=== PATIENT | female | born 1990 | race African-American/Black ===

== ENCOUNTER 2016-10-12 16:01 | Emergency (ER) | payer MEDICAID ==
--- NOTE | 2016-10-12 17:27 | ED ---
- HPI Summary HPI Summary: 26 F presents for sonogram for potential scheduled in [place]. LMP was Jul 18, 2016. She is currently 16 weeks . [facility] . [facility] but [facility] not [facility] so need another one done. She denies any abdominal pain, vaginal bleeding, chest pain, SOB, or n/v. - History of Current Complaint Chief Complaint: EDOBProblems Stated Complaint: NEEDS SONOGRAM Time Seen by Provider: 10/12/16 17:03 Pain Intensity: 0 - Assessment Hx Now: No SAB: 0 IEA: 2 - Additional Pertinent History Maternal Blood Type and Rh: O Negative - Allergies/Home Medications Allergies/Adverse Reactions: Allergies Allergy/AdvReac Type Severity Reaction Status Date / Time No Known Allergies Allergy Verified 10/12/16 16:08 PMH/Surg Hx/FS Hx/Imm Hx Endocrine/Hematology History: Denies: Hx Diabetes, Hx Thyroid Disease Cardiovascular History: Denies: Hx Hypertension Respiratory History: Denies: Hx Asthma, Hx Chronic Obstructive Pulmonary Disease (COPD) GI History: Denies: Hx Ulcer Psychiatric History: Denies: Hx Anxiety, Other Psychiatric Issues/Disorders Infectious Disease History: No Infectious Disease History: Denies: Hx Clostridium Difficile, Hx Hepatitis, Hx Human Immunodeficiency Virus (HIV), Hx Shingles, Hx Tuberculosis, Traveled Outside the in Last 30 Days - Family History Known Family History: Positive: Cardiac Disease - Social History Alcohol Use: None Substance Use Type: Reports: None Smoking Status (MU): Light Every Day Tobacco Smoker Amount Used/How Often: <1/2 ppd Have You Smoked in the Last Year: No Review of Systems Negative: Fever Negative: Chest Pain Negative: Shortness Of Breath Negative: Abdominal Pain All Other Systems Reviewed And Are Negative: Yes Physical Exam - Physical Exam Triage Information Reviewed: Yes Vital Signs Reviewed: Yes Appearance: Positive: Well-Appearing Skin: Positive: Warm, Dry Head/Face: Positive: Normal Head/Face Inspection Eyes: Positive: Normal, Conjunctiva Clear ENT: Positive: Normal ENT inspection, Pharynx normal, TMs normal Respiratory/Lung Sounds: Positive: Clear to Auscultation, Breath Sounds Present Cardiovascular: Positive: Normal, RRR Diagnostics - Vital Signs Vital Signs Temp Pulse Resp BP Pulse Ox 10/12/16 16:50 98.1 F 93 16 122/70 98 10/12/16 16:03 97.7 F 97 16 148/76 98 - Laboratory Lab Statement: Any lab studies that have been ordered have been reviewed, and results considered in the medical decision making process. Course/Dx - Course Course Of Treatment: 26 F presents for u/s for scheduled . No compliant at this time. was told to come here for authorization form for u[facility]s. [facility] at this time. called u/s and they can not do complete u/s for out of ER which is what is needed. explained this to patient that will need [facility] to get [facility] to [facility] to have u/s done as outpatient, patient understands and agrees with plan - Differential Diagnosis/HQI/PQRI: Threatened , Intrauterine - Diagnoses Provider Diagnoses: Discharge - Discharge Plan Condition: Good Disposition: HOME Patient Education Materials: at 15 to 18 Weeks (ED) Referrals: No Primary Care Phys,NOPCP [Primary Care Provider] - Additional Instructions: Call [facility] Return to ED if develop any new or worsening symptoms
[2016-10-12 17:34] VITALS: BP 116/60
== END 2016-10-12 17:33 | disposition home or self-care (01) ==
LOC: ED 16:01
DX: Z34.92 Encounter for supervision of normal pregnancy, unspecified, second trimester (principal); Z3A.16 16 weeks gestation of pregnancy
CPT/HCPCS: 99281

== ENCOUNTER 2017-12-26 13:06 | Emergency (ER) | payer SELFPAY ==
[2017-12-26 16:28] VITALS: BP 111/80
--- NOTE | 2018-01-11 06:30 | ED ---
Throat Pain/Nasal Congestion - HPI Summary HPI Summary: Patient presents with right ear pain, swelling and pain in throat x 1 day. Pain worse with swallowing. She has not tried anything yet for pain. Denies fevers , chills, nausea, vomiting, diarrhea, chest pain, abdominal pain, shortness of breath, rash, cough. She admits her child has been sick recently - diagnosed with a sinus infection and provided with antibiotic prescription however mom has not had this filled yet as she couldn't afford it. Mom denies personal history of strep throat, [place]. Believes her immunizations are up-to-date otherwise. - History of Current Complaint Chief Complaint: EDThroatPain Time Seen by Provider: 12/26/17 14:19 Hx Obtained From: Patient - Allergies/Home Medications Allergies/Adverse Reactions: Allergies Allergy/AdvReac Type Severity Reaction Status Date / Time No Known Allergies Allergy Verified 12/26/17 13:13 PMH/Surg Hx/FS Hx/Imm Hx Previously Healthy: Yes Endocrine/Hematology History: Denies: Hx Diabetes, Hx Thyroid Disease Cardiovascular History: Denies: Hx Hypertension Respiratory History: Denies: Hx Asthma, Hx Chronic Obstructive Pulmonary Disease (COPD) GI History: Denies: Hx Ulcer Psychiatric History: Denies: Hx Anxiety, Other Psychiatric Issues/Disorders Infectious Disease History: No Infectious Disease History: Denies: Hx Clostridium Difficile, Hx Hepatitis, Hx Human Immunodeficiency Virus (HIV), Hx Shingles, Hx Tuberculosis, Traveled Outside the in Last 30 Days - Family History Known Family History: Positive: Cardiac Disease - Social History Lives: With Family Alcohol Use: None Hx Substance Use: No Substance Use Type: Reports: None Hx Tobacco Use: Yes Smoking Status (MU): Current Every Day Smoker Amount Used/How Often: <1/2 ppd Have You Smoked in the Last Year: No Review of Systems Constitutional: Negative Negative: Fever, Chills, Fatigue Eyes: Negative Positive: Sore Throat, Ear Ache. Negative: Nasal Discharge Cardiovascular: Negative Respiratory: Negative Negative: Shortness Of Breath Gastrointestinal: Negative Positive: no symptoms reported Musculoskeletal: Negative Skin: Negative Neurological: Negative Psychological: Normal All Other Systems Reviewed And Are Negative: Yes Physical Exam Triage Information Reviewed: Yes Vital Signs On Initial Exam: Initial Vitals Temp Pulse Resp BP Pulse Ox 98.2 F 95 16 143/72 98 12/26/17 13:11 12/26/17 13:11 04/26/18 13:11 12/26/17 13:11 12/26/17 13:11 Vital Signs Reviewed: Yes Appearance: Positive: Well-Appearing, No Pain Distress, Well-Nourished Skin: Positive: Warm, Skin Color Reflects Adequate Perfusion, Dry - no rash Head/Face: Positive: Normal Head/Face Inspection Eyes: Positive: Normal, EOMI, Conjunctiva Clear ENT: Positive: Hearing grossly normal, Pharynx normal, TMs normal, Tonsillar swelling, Tonsillar exudate, Uvula midline. Negative: Nasal congestion, Nasal drainage, Trismus, Muffled voice, Sinus tenderness Neck: Positive: Supple, Tenderness @ - submandibular, Enlarged Nodes @ - as above Respiratory/Lung Sounds: Positive: Clear to Auscultation, Breath Sounds Present. Negative: Rales, Rhonchi, Stridor, Tracheal Deviation, Wheezes Cardiovascular: Positive: Normal, RRR, S1, S2. Negative: Murmur, Rub Abdomen Description: Positive: Nontender, No Organomegaly, Soft Bowel Sounds: Positive: Present Musculoskeletal: Positive: Normal, Strength/ROM Intact Neurological: Positive: Normal, Sensory/Motor Intact, Alert, Oriented to Person Place, Time, CN Intact II-III Psychiatric: Positive: Normal Diagnostics - Vital Signs Vital Signs Temp Pulse Resp BP Pulse Ox 12/26/17 16:27 97.5 F 98 16 111/80 100 12/26/17 13:11 98.2 F 95 16 143/72 98 - Laboratory Lab Results: Lab Results 12/26/17 Range/Units 14:40 Group A Strep Rapid Positive A (Negative) Lab Statement: Any lab studies that have been ordered have been reviewed, and results considered in the medical decision making process. EENT Course/Dx - Course Course Of Treatment: Patient diagnosed with strep throat. Believe her son has the same. Strongly encouraged her to start antibiotics today as well as get her son's antibiotics filled. Discussed free prescription program through various pharmacies in town. She requests this medication as [facility] as [facility] will pick this up today. Encouraged her to call back if she has any difficulty obtaining this prescription and explained it is important for not only her to take an complete this but also her son in an effort to a prevent worsening infection in either of their bodies as well as be prevent spread to other persons. Patient voices understanding and agrees with plan. Reviewed danger signs and symptoms of when to return to the emergency department. Patient also voices understanding and agrees with plan. - Diagnoses Provider Diagnoses: Strep pharyngitis Discharge - Sign-Out/Discharge Documenting (check all that apply): Discharge/Admit/Transfer - Discharge Plan Condition: Stable Disposition: HOME Prescriptions: Amoxicillin PO (*) [Amoxicillin 500 MG CAP*] 500 mg PO Q12H #20 cap Patient Education Materials: Strep Throat (ED) Referrals: [facility] [Outside] Additional Instructions: Complete antibiotics as directed - they have been sent to your pharmacy. If you do not complete this, your infection could worsen and spread to other organs such as your heart, kidneys, etc. To aid in your comfort, try the following: Salt water throat gargles 2 x day Drink you body weight in ounces of water every day Sleep 8+ hours per night Avoid Dairy and sugar Hot herbal/decaf tea with lemon & honey Chicken broth (preferably organic, free range chicken) Keep home temperature at 68F or less to reduce dryness Use throat lozenges Ibuprofen with food as needed for pain Avoid smoke, candles, perfumes, colognes, scented soaps/detergents , air fresheners and cleaning chemicals as these can cause airway irritation and trigger coughing Start Vitamin D3 5000iu and Vitamin C 1000mg every day x winter months Start probiotics in between antibiotics (ie. Yogurt and/or capsules of L. acidophilus, L. bifidus, L. casei, etc) *If you develop worsening of symptoms or difficulty swallowing/breathing, return to ED. Otherwise, follow-up with your PCP. - Billing Disposition and Condition Condition: STABLE Disposition: HOME
== END 2017-12-26 16:27 | disposition home or self-care (01) ==
LOC: ED 13:06
DX: J02.0 Streptococcal pharyngitis (principal); F17.210 Nicotine dependence, cigarettes, uncomplicated
CPT/HCPCS: 87651; 99282

== ENCOUNTER 2019-01-18 14:25 | Emergency (ER) | payer OTHER ==
[2019-01-18] MEDS ORDERED: Ketorolac INJ* 60 MG/2 ML VIAL IM ONE (15:33)
[2019-01-18] MEDS ORDERED: Ibuprofen TAB* 600 MG PO ONE (15:38)
[2019-01-18 16:26] LABS: C Reactive Protein 5.8 mg/L (<8.01)
[2019-01-18 17:00] VITALS: BP 106/91
--- NOTE | 2019-01-18 17:09 | ED ---
HPI Cardiac - HPI Summary HPI Summary: Patient is a 28-year-old otherwise healthy female presenting to the ED with midsternal to left-sided chest wall pain. Symptoms began yesterday after eating to double cheeseburgers and namibian fries, stating she felt this was epigastric pain. However upon awakening this morning, the pain continued to this area. She is endorsing some pain up to the left shoulder with some numbness and tingling down the arm earlier, this is since resolved. Symptoms are worse with palpation, better with nothing. Symptoms are worse with deep breaths and movement (turning side to side). Endorses smoking hx, no recent travel. No history of blood clots. No history of COPD, asthma or PNA. Denies any shortness of breath. Denies any throat or neck pain. She states she is otherwise feeling well. Denies any fevers, sweats, chills. - History of Current Complaint Chief Complaint: EDShortnessOfBreath Stated Complaint: SHORT OF BREATH, CHEST PAIN Time Seen by Provider: 01/18/19 15:25 Hx Obtained From: Patient Hx Last Menstrual Period: yesterday Onset/Duration: Started Hours Ago Timing: Constant Initial Severity: Moderate Current Severity: Moderate Pain Intensity: 4 Pain Scale Used: 0-10 Numeric Chest Pain Location: Mid Sternal Chest Pain Radiates: Yes Chest Pain Radiates To:: Shoulder Character: Tightness Aggravating Factor(s): Position, Movement, Deep Breaths Alleviating Factor(s): Rest, Position Associated Signs and Symptoms: Negative: Chest Pain, Vision Changes, Anxiety, Recent Stress, Palpitations, Edema, URI - Risk Factors Pulmonary Embolism Risk Factors: Negative Cardiac Risk Factors: Negative Atrial Fibrillation Risk Factors: Negative TAD Risk Factors: Negative - Allergy/Home Medications Allergies/Adverse Reactions: Allergies Allergy/AdvReac Type Severity Reaction Status Date / Time No Known Allergies Allergy Verified 12/26/17 13:13 PMH/Surg Hx/FS Hx/Imm Hx Previously Healthy: Yes Endocrine/Hematology History: Denies: Hx Diabetes, Hx Thyroid Disease Cardiovascular History: Denies: Hx Hypertension Respiratory History: Denies: Hx Asthma, Hx Chronic Obstructive Pulmonary Disease (COPD) GI History: Denies: Hx Ulcer Psychiatric History: Denies: Hx Anxiety, Other Psychiatric Issues/Disorders - Immunization History Hx Pertussis Vaccination: No Immunizations Up to Date: Yes Infectious Disease History: No Infectious Disease History: Denies: Hx Clostridium Difficile, Hx Hepatitis, Hx Human Immunodeficiency Virus (HIV), Hx Shingles, Hx Tuberculosis, Traveled Outside the [place] in Last 30 Days - Family History Known Family History: Positive: Cardiac Disease - Social History Occupation: Employed Full-time Lives: With Family Alcohol Use: None Hx Substance Use: No Substance Use Type: Reports: None Hx Tobacco Use: Yes Smoking Status (MU): Current Every Day Smoker Amount Used/How Often: <1/2 ppd Have You Smoked in the Last Year: No Review of Systems Constitutional: Negative Negative: Fever, Chills, Fatigue, Skin Diaphoresis Positive: Chest Pain - midsternal chest wall pain. Negative: Palpitations Negative: Shortness Of Breath, Cough Negative: Arthralgia, Myalgia, Decreased ROM, Edema Negative: Rash, Bruising Neurological: Negative All Other Systems Reviewed And Are Negative: Yes Physical Exam Triage Information Reviewed: Yes Vital Signs On Initial Exam: Initial Vitals Temp Pulse Resp BP Pulse Ox 98.6 F 103 18 122/86 98 01/18/19 14:33 01/18/19 14:33 01/18/19 14:33 01/18/19 14:33 01/18/19 14:33 Vital Signs Reviewed: Yes Appearance: Positive: Well-Appearing, Well-Nourished Skin: Positive: Warm, Skin Color Reflects Adequate Perfusion Head/Face: Positive: Normal Head/Face Inspection Eyes: Positive: EOMI, Conjunctiva Clear Neck: Positive: Supple, No Lymphadenopathy Respiratory/Lung Sounds: Positive: Breath Sounds Present Cardiovascular: Positive: RRR, Pulses are Symmetrical in both Upper and Lower Extremities Musculoskeletal: Positive: Pain @ - left chest wall and sternal notch on palpation; ROM throughout upper extremities with discomfort Neurological: Positive: Sensory/Motor Intact, Alert, Oriented to Person Place, Time Psychiatric: Positive: Affect/Mood Appropriate, Anxious Diagnostics - Vital Signs Vital Signs Temp Pulse Resp BP Pulse Ox 01/18/19 16:59 97.2 F 91 23 106/91 98 01/18/19 16:17 91 99 01/18/19 15:31 97 124/88 99 01/18/19 15:30 94 99 01/18/19 14:33 98.6 F 103 18 122/86 98 - Laboratory Lab Results: Lab Results 01/18/19 01/18/19 01/18/19 Range/Units 16:01 16:01 16:01 WBC 12.0 H (3.5-10.8) 10^3/uL D-Dimer, Quantitative < 200 (Less Than 230) ng/mL Troponin I 0.00 (<0.04) ng/mL C-Reactive Protein 5.80 (<8.01) mg/L Result Diagrams: 01/18/19 16:01 Lab Statement: Any lab studies that have been ordered have been reviewed, and results considered in the medical decision making process. Disposition - Course Course Of Treatment: During his course of treatment, the patient's evaluated for midsternal to left-sided chest wall pain. On physical examination, there is exquisite tenderness to palpation of the sternal region radiating to the left chest wall. There is no neck pain tenderness on palpation. No neck stiffness. No photophobia. Denies shortness of breath. White blood cell count shows 12. Negative CRP. Troponin 0.00. D-dimer is negative. Patient is given Toradol in the ED. She'll be dx with costochondritis d/t pain on palpation. There are no other findings suggestive of cardiac etiology. - Differential Dx - Cardiopulmonary Differential Diagnoses - Cardiopulmonary: Other - Chest wall pain, muscle pain, chest tightness - Diagnoses Provider Diagnoses: Costochondral pain Discharge - Sign-Out/Discharge Documenting (check all that apply): Patient Departure Patient Received Moderate/Deep Sedation with Procedure: No - Discharge Plan Condition: Stable Disposition: HOME Prescriptions: Ketorolac TAB * [Toradol TAB *] 10 mg PO Q6H #16 tab predniSONE TAB* [Deltasone TAB*] 50 mg PO DAILY #4 tab Patient Education Materials: Costochondritis (ED) Forms: *Work Release Referrals: No Primary Care Phys,NOPCP [Primary Care Provider] - Additional Instructions: Toradol four times daily x 4 days Prednisone once daily in the morning x 4 days moist heat over the area as much as possible Gentle stretches - Billing Disposition and Condition Condition: STABLE Disposition: Home
== END 2019-01-18 16:59 | disposition home or self-care (01) ==
LOC: ED 14:25
DX: R07.1 Chest pain on breathing (principal); F17.210 Nicotine dependence, cigarettes, uncomplicated
CPT/HCPCS: 36415; 71046; 84484; 85048; 85379; 86140; 93005; 96372; 99283; J1885

== ENCOUNTER 2019-10-06 15:00 | Emergency (ER) | payer OTHER ==
[2019-10-06] MEDS ORDERED: Benzonatate CAP* 100 MG PO ONE (18:30)
--- NOTE | 2019-10-06 18:33 | ED ---
Influenza-Like Illness - HPI Summary HPI Summary: Patient is a 29 y/o F presenting to [facility] with complaints of chest congestion, cough, sore throat, fever, rhinorrhea. Sx onset yesterday. She states that she had an episode of hot flashes earlier today as well. N/V/D denied. Patient denies taking medications for her Sx. She has not had flu shot this season. Patient notes sick contact with friend's son. PMHx denied. PSHx of caesarean section noted. She is a current smoker, notes rare alcohol usage, and denies substance usage. NKDA reported. Home medications and allergies are reviewed. - History of Current Complaint Chief Complaint: EDFluSymptoms Time Seen by Provider: 10/06/19 18:02 Hx Obtained From: Patient Onset/Duration: Lasting Days, Still Present Severity: Mild Associated Signs & Symptoms: Fever, Cough, Sore Throat, Nasal Congestion - Allergy/Home Medications Allergies/Adverse Reactions: Allergies Allergy/AdvReac Type Severity Reaction Status Date / Time No Known Allergies Allergy Verified 12/26/17 13:13 PMH/Surg Hx/FS Hx/Imm Hx Endocrine/Hematology History: Denies: Hx Diabetes, Hx Thyroid Disease Cardiovascular History: Denies: Hx Hypertension Respiratory History: Denies: Hx Asthma, Hx Chronic Obstructive Pulmonary Disease (COPD) GI History: Denies: Hx Ulcer Psychiatric History: Denies: Hx Anxiety, Other Psychiatric Issues/Disorders Infectious Disease History: No Infectious Disease History: Denies: Hx Clostridium Difficile, Hx Hepatitis, Hx Human Immunodeficiency Virus (HIV), Hx Shingles, Hx Tuberculosis, Traveled Outside the [place] in Last 30 Days - Family History Known Family History: Positive: Cardiac Disease - Social History Alcohol Use: Rare Hx Substance Use: No Substance Use Type: Reports: None Hx Tobacco Use: Yes Smoking Status (MU): Current Every Day Smoker Amount Used/How Often: <1/2 ppd Have You Smoked in the Last Year: No Review of Systems Constitutional: Other - positive - hot flashes Positive: Fever - reported Positive: Sore Throat, Nasal Discharge Respiratory: Other - positive - chest congestion Positive: Cough Negative: Vomiting, Diarrhea, Nausea All Other Systems Reviewed And Are Negative: Yes Physical Exam - Summary Physical Exam Summary: Constitutional: Well-developed, Well-nourished, Alert. (-) Distressed Skin: Warm, Dry HENT: Normocephalic; Atraumatic Eyes: Conjunctiva normal Neck: Musculoskeletal ROM normal neck. (-) JVD, (-) Stridor, (-) Tracheal deviation Cardio: Rhythm regular, rate normal, Heart sounds normal; Intact distal pulses; Radial pulses are 2+ and symmetric. (-) Murmur Pulmonary/Chest wall: Effort normal. (-) Respiratory distress, (-) Wheezes, (-) Rales Abd: Soft, (-) tenderness, (-) Distension, (-) Guarding, (-) Rebound Musculoskeletal: (-) Edema Lymph: (-) Cervical adenopathy Neuro: Alert, Oriented x3 Psych: Mood and affect Normal Triage Information Reviewed: Yes Vital Signs On Initial Exam: Initial Vitals Temp Pulse Resp BP Pulse Ox 97.9 F 98 18 129/110 99 10/06/19 15:27 10/06/19 15:27 10/06/19 15:27 10/06/19 15:27 10/06/19 15:27 Vital Signs Reviewed: Yes Procedures - Sedation Patient Received Moderate/Deep Sedation with Procedure: No Diagnostics - Vital Signs Vital Signs Temp Pulse Resp BP Pulse Ox 10/06/19 17:02 98.6 F 116 18 133/100 98 10/06/19 15:27 97.9 F 98 18 129/110 99 - Laboratory Lab Statement: Any lab studies that have been ordered have been reviewed, and results considered in the medical decision making process. Flu Symptom Course/Dx - Course Course Of Treatment: Patient is here with viral type symptoms. Patient has had symptoms since last night. Patient is overall healthy. Patient is here with her child who has similar symptoms. Patient does not meet the requirements for treating with Tamiflu so was ordered. Patient was given Tessalon Perles. Patient was discharged with a prescription for that as well. - Diagnoses Provider Diagnoses: Fever, Sore throat, Cough Discharge ED - Sign-Out/Discharge Documenting (check all that apply): Patient Departure - discharge - Discharge Plan Condition: Stable Disposition: HOME Prescriptions: Benzonatate CAP* [Tessalon 100 MG CAP*] 100 mg PO TID #20 cap Patient Education Materials: Fever in Adults (ED), Acute Cough (ED) Referrals: [facility] [Outside] - 3 Days Additional Instructions: PLEASE FOLLOW UP WITH YOUR PRIMARY CARE PHYSICIAN WITHIN THREE DAYS. TAKE YOUR MEDICATION PRESCRIBED. TAKE MOTRIN AND TYLENOL FOR PAIN. PLEASE RETURN TO ED FOR DIFFICULTY BREATHING, HIGH FEVERS, OR ANY OTHER CONCERNING SYMPTOMS. - Billing Disposition and Condition Condition: STABLE Disposition: Home - Attestation Statements Document Initiated by Brianna: Yes Documenting Scribe: CARLOS OWENS Provider For Whom Brianna is Documenting (Include Credential): KALIE ESPOSITO MD Scribe Attestation: IACRLOS, scribed for KALIE ESPOSITO MD on 10/07/19 at 1005. Scribe Documentation Reviewed: Yes Provider Attestation: The documentation as recorded by the CARLOS piedra accurately reflects the service I personally performed and the decisions made by me, KALIE ESPOSITO MD Status of Scribe Document: Viewed
[2019-10-06 19:03] VITALS: BP 134/101
== END 2019-10-06 19:01 | disposition home or self-care (01) ==
LOC: ED 15:00
DX: R50.9 Fever, unspecified (principal); J02.9 Acute pharyngitis, unspecified; R05 Cough; F17.200 Nicotine dependence, unspecified, uncomplicated
CPT/HCPCS: 99282; A9270-GY